=== PATIENT | male | born 1980 | race Caucasian/White ===

== ENCOUNTER → 2019-12-28 09:30 | Outpatient (CLI) | payer BC, SELFPAY ==
--- NOTE | ~2019-12-28 | US_ITS ---
EXAMINATION: US abdomen limited DATE: 12/28/2019 10:19 INDICATION: Unspecified abdominal pain. TECHNIQUE: Multiple grayscale and Doppler ultrasound images of the abdomen were obtained. COMPARISON: None FINDINGS: Abdominal aorta is normal in caliber. The visualized portion of the head of the pancreas is normal. There is diffuse hepatic steatosis. There is normal flow in main portal vein. The gallbladde r is normal in size. No gallstones or gallbladder wall thickening. There was no sonographic Evans si gn. The common duct is normal and measures 4 mm. Right kidney is normal in size. IMPRESSION: 1. Diffuse hepatic steatosis. Reviewed, dictated and finalized at location A.
== END ==
PROVIDERS: PCP Family Medicine; Referring Provider Physician Assistant; Visit Provider Family Medicine
DX: K76.0 Fatty (change of) liver, not elsewhere classified (principal)
CPT/HCPCS: 76705

== ENCOUNTER 2021-05-07 12:13 | Emergency (ER) | payer BC, SELFPAY ==
--- NOTE | 2021-05-07 12:14 | ECG_ITS ---
Measurements Intervals [place] Rate: 87 P: 39 SD: 151 QRS: 36 QRSD: 102 T: 75 QT: 356 QTc: 430 Interpretive Statements SINUS RHYTHM MINIMAL Q WAVES- HIGH LATERAL LEADS BORDERLINE ECG Electronically Signed On 05-07-2021 16:54:35 [employer] by Dion Pak D.O.
[2021-05-07 12:27] VITALS: BP 157/100; PULSE 89; RESP 16; TEMP 36.9; O2SAT 97
--- NOTE | 2021-05-07 14:28 | PC.NURSE ---
Pt presented to triage desk, stated that he is feeling better and will see his PCP. Pt encouraged to stay, as he was having possible cardiac symptoms. Pt verbalized understanding when RN explained risks of leaving. Pt still wanting to leave. Ambulatory and in no obvious distress when walking out.
== END 2021-05-08 03:04 | disposition left against medical advice (07) ==
LOC: ANHED 15:07
PROVIDERS: Emergency Provider Emergency Medicine; PCP Family Medicine
DX: Z53.21 Procedure and treatment not carried out due to patient leaving prior to being seen by health care provider (principal)
CPT/HCPCS: 93005; 99199

== ENCOUNTER 2021-05-11 08:11 | Outpatient (CLI) | payer BC, SELFPAY ==
[2021-05-11 08:41] LABS: Basophils Percent Auto 0.4 % (0.2-1.2); Eosinophils Absolute Auto 0.1 K/mm3 (0-0.3); Eosinophils Percent Auto 1.1 % (0-4.4); Immature Granulocyte Absolute 0.03 K/mm3 (0.00-0.031); Immature Granulocyte Percent A 0.4 % (0-0.5); Lymphocytes Absolute Auto 2.13 K/mm3 (0.9-3.2); Lymphocytes Percent Auto 26.7 % (18.3-44.2); Mean Corpuscular Hemoglobin 29.9 pg (26-34); Mean Corpuscular Volume 87.9 fl (80-100); Mean Platelet Volume 10.9 fl (7.4-10.4); Monocytes Absolute Auto 0.5 K/mm3 (0.1-0.6); Monocytes Percent Auto 6.4 % (2.6-8.5); Neutrophils Absolute Auto 5.2 K/mm3 (1.3-6.7); Platelet Count Result 207 k/mm3 (150-375); Red Blood Count 5.35 M/mm3 (4.6-6.20); Red Cell Distribution Width 12.6 % (11.5-14.5)
[2021-05-11 08:43] LABS: Add Urine Microscopic? YES; Appearance Urine Clear (Clear); Bilirubin Urine Negative (Negative); Blood Urine Negative (Negative); Color Urine Yellow (Yellow); Glucose Urine UA Negative (Negative); Ketones Urine Negative (Negative); Leukocyte Esterase Ur Negative LEU/UL (NEGATIVE); Mucus Urine Rare /lpf; Nitrate Urine Negative (Negative); Protein Urine Negative (Negative); RBC Urine 0-2 /hpf (0-2); Urobilinogen Urine Negative mg/dL (<2.0); WBC Urine 0-3 /hpf (0-3)
[2021-05-11 08:51] LABS: Alanine Aminotransferase 38 U/L (4-50); Albumin Level 4.5 g/dL (3.5-5.1); Alkaline Phosphatase 59 U/L (38-126); Amylase 60 U/L (30-110); Anion Gap 8 mmol/L (8-16); Aspartate Amino Transferase 29 U/L (17-59); Bilirubin,Total 0.8 mg/dL (0.2-1.3); Blood Urea Nitrogen 14 mg/dL (9-20); Calcium 8.8 mg/dL (8.4-10.2); Carbon Dioxide 27 mmol/L (22-30); Chloride 103 mmol/L (98-107); Cholesterol 194 mg/dL (0-200); Estimated Glomerular Filt Rate > 60; Glucose 97 mg/dL (65-110); HDL Direct 33 mg/dL; Lipase 52 U/L (23-300); Potassium 4.2 mmol/L (3.4-5.0); Sodium 138 mmol/L (137-145); Triglycerides 219 mg/dL (<150)
[2021-05-11 09:02] LABS: LDL Cholesterol Direct 123 mg/dL
== END 2021-05-11 08:12 | disposition home or self-care (01) ==
PROVIDERS: PCP Family Medicine; Visit Provider Physician Assistant
DX: Z00.00 Encounter for general adult medical examination without abnormal findings (principal); R10.9 Unspecified abdominal pain; E78.1 Pure hyperglyceridemia; K76.0 Fatty (change of) liver, not elsewhere classified; R10.13 Epigastric pain
CPT/HCPCS: 36415; 80053; 80061; 81001; 82150; 83690; 84443; 85025

== ENCOUNTER 2021-08-13 01:25 | Day surgery (SDC) | payer BC, SELFPAY ==
[2021-08-03 13:55] VITALS: BMI 40.2
--- NOTE | 2021-08-13 08:33 | P.PNAN_ITS ---
Anes - Initial Pre Proc Eval Procedure: Operation Date: 08/13/21 10:00 Proposed Procedures p Esophagogastroduodenoscopy - Mina Isidro MD Date/Time: 08/13/21 08:33 Surgeon: Mina Isidro MD Pre Op Diagnosis: GERD Patient Data Age: 41 Gender: M Height: 1.78 m Weight: 127.2 kg Allergies Allergy/AdvReac Type Severity Reaction Status Date / Time amoxicillin Allergy Unknown stomach Verified 08/13/21 08:48 upset Home Medications Medication Instructions Recorded Confirmed Type lansoprazole 15 mg capsule,delayed 15 mg PO BID cap 06/24/21 08/03/21 History release Patient hx anesthesia problems: none Family hx anesthesia problems: none Results Review: All pre-operative results and documents have been reviewed as part of the pre-operative evaluation. [facility] Past Medical History Medical History (Updated 08/13/21 @ 08:34 by Clay Lazcano MD) Chronic GERD Hepatic steatosis Morbid obesity with BMI of 40.0-44.9, adult Pure hyperglyceridemia Surgical History Surgical History History of fracture of wrist s/p ORIF R Family History Family History Mother Diabetes mellitus Father Hypertension Social History Social History (Updated 06/23/21 @ 16:11 by Nusrat Luo) Social History: Years smoked: 18 Smoking status: Former smoker Tobacco type: cigarettes Second hand tobacco smoke exposure: No Smoking end date: 05/07/21 Alcohol intake: current Alcohol use details: Occasionally Substance use: current Substance use type: marijuana Other substance usage details: occasionally takes an edible Last use: Pt uses edible gummies. Living arrangements: with family Gender identity (if verbalized by the patient): Male Sexual Orientation (if Verbalized by the Patient): Straight or Heterosexual Anes - Eval Final PreProcedure Day of Procedure 08/13/21 08:33 Patient weight: obese Heart: regular rate and rhythm Lungs: clear to auscultation and normal air movement Airway: Mallampati scale class II Neurological: alert and oriented Last oral intake: >/= 8 hours ASA classification: III Emergent: no Anesthetic plan: proceed Anesthesia type and monitoring: general GIVS Results Review: All pre-operative results and documents have been reviewed as part of the pre-operative evaluation. Informed Consent: The patient's anesthetic plan and its attendant risks and benefits were discussed with the patient/family/POA. Questions were solicited and answers provided to the satisfaction of the patient/family/POA.
[2021-08-13 08:49] VITALS: BP 145/88; PULSE 72; RESP 16; TEMP 36.3; O2SAT 99
[2021-08-13] MEDS: LACTATED RINGERS 1,000 ML 150 ML IV CONT (08:57)
--- NOTE | 2021-08-13 09:17 | PM.HPGS ---
History of Present Illness History of Present Illness Consent: Risks, benefits, and alternatives have been discussed and questions answered. Patient agrees to proceed with procedure. Chief complaint: GERD Narrative: Thiago William is a 41 year old male with gerd on lansoprazole bid for almost 2 years, recently had non-cardiac chest pain with normal stress test. Never had EGD. Review of Systems Constitutional: Constitutional: Denies headache(s) and Denies weakness Eyes: Eyes: Denies blurry vision ENT: Reports Normal hearing present, Denies headache(s) and Denies neck pain Cardiovascular: Cardiovascular: Denies chest pain and Denies dyspnea Respiratory: Respiratory: Denies dyspnea Gastrointestinal: Gastrointestinal: Reports no additional gastrointestinal complaints Genitourinary: Genitourinary: Denies dysuria Musculoskeletal: Musculoskeletal: Denies neck pain Integumentary/Breasts: Skin/Breast: Denies dry skin Neurologic: Reports Normal hearing present, Denies headache(s) and Denies weakness Psychiatric: Psychiatric: Denies anxiety Endocrine: Endocrine: Denies change in body appearance Hematologic/Lymphatic: Hematologic/Lymphatic: Denies easy bleeding Allergic/Immunologic: Allergic/Immunologic: Denies urticaria PMFSH Past Medical History Medical History (Updated 08/13/21 @ 09:18 by Mina Isidro MD) Chronic GERD Hepatic steatosis Morbid obesity with BMI of 40.0-44.9, adult Non-cardiac chest pain Pure hyperglyceridemia Surgical History Surgical History History of fracture of wrist s/p ORIF R Family History Family History Mother Diabetes mellitus Father Hypertension Social History Social History (Updated 06/23/21 @ 16:11 by Nusrat Luo) Social History: Years smoked: 18 Smoking status: Former smoker Tobacco type: cigarettes Second hand tobacco smoke exposure: No Smoking end date: 05/07/21 Alcohol intake: current Alcohol use details: Occasionally Substance use: current Substance use type: marijuana Other substance usage details: occasionally takes an edible Last use: Pt uses edible gummies. Living arrangements: with family Gender identity (if verbalized by the patient): Male Sexual Orientation (if Verbalized by the Patient): Straight or Heterosexual Meds Home Medications and Allergies Home Medications Medication Instructions Recorded Confirmed Type lansoprazole 15 mg capsule,delayed 15 mg PO BID cap 06/24/21 08/03/21 History release Allergies Allergy/AdvReac Type Severity Reaction Status Date / Time amoxicillin Allergy Unknown stomach Verified 08/13/21 08:48 upset Vital Signs Vital Signs - 24 hr 08/13/21 08:49 Temperature 97.4 F L Pulse Rate 72 Respiratory Rate 16 Blood Pressure 145/88 H Pulse Oximetry 99 Exam Const: General: comfortable and no acute distress HENMT: General nose exam: Normal nares present Eyes: General: appearance normal, both eyes and all related structures Neck: Neck: no JVD Resp: Auscultation: clear to auscultation bilaterally Cardio: Rate: regular rate Rhythm: regular rhythm GI: Inspection: non-distended GI Palp: Yes Soft to palpation Skin: General skin exam: normal color Neuro: General: gait normal Speech: normal speech Extrem: General: normal to inspection Psych: Mental Status: mental status grossly normal Assessment and Plan Assessment and plan (1) Chronic GERD: Code(s): K21.9 - Gastro-esophageal reflux disease without esophagitis Status: Acute Assessment and Plan: egd with bx, already on ppi bid (2) Non-cardiac chest pain: Code(s): R07.89 - Other chest pain Status: Acute
[2021-08-13 09:41] VITALS: BP 128/87; PULSE 72; RESP 18; O2SAT 96
[2021-08-13 09:51] VITALS: BP 122/80; PULSE 64; RESP 14; O2SAT 97
[2021-08-13 10:01] VITALS: BP 135/92; PULSE 72; RESP 15; O2SAT 97
== END 2021-08-13 10:12 | disposition home or self-care (01) ==
PROVIDERS: PCP Family Medicine; Visit Provider Internal Medicine Gastroenterology
PROC: 0DJ08ZZ Inspection of Upper Intestinal Tract, Via Natural or Artificial Opening Endoscopic (ICD-10-PCS; CPT 43235; principal; 2021-08-13 10:00)
DX: K21.9 Gastro-esophageal reflux disease without esophagitis (principal); R07.89 Other chest pain; K76.0 Fatty (change of) liver, not elsewhere classified; E78.1 Pure hyperglyceridemia; E66.01 Morbid (severe) obesity due to excess calories; Z68.41 Body mass index [BMI] 40.0-44.9, adult; Z87.891 Personal history of nicotine dependence; F12.90 Cannabis use, unspecified, uncomplicated
CPT/HCPCS: 43239; 88305; J2001; J2704; J7120

== ENCOUNTER → 2022-01-28 08:02 | Outpatient (CLI) | payer BC, SELFPAY ==
--- NOTE | ~2022-01-28 | US_ITS ---
EXAMINATION: US abdomen complete DATE: 01/28/2022 08:32 INDICATION: Gastroesophageal reflux disease TECHNIQUE: Multiple grayscale and Doppler ultrasound images of the abdomen were obtained. COMPARISON: 12/28/2019 FINDINGS: Bowel gas obscures visualization of the pancreas. The visualized portions of the pancreas a re unremarkable. The liver is normal with normal echogenicity and echotexture. No surface nodularity. Normal hepatopetal flow in the main portal vein. The gallbladder is normal with no abnormal wall thi ckening, pericholecystic fluid or stones. The normal common bile duct measures 4 mm. There was no son ographic Evans sign. The visualized portions of the aorta and inferior vena cava are normal. The right kidney measures 11.1 x 5.9 x 5.5 cm. The left kidney measures 12.1 x 5.7 x 5.5 cm. The kidn eys demonstrate normal parenchymal echogenicity. There is no hydronephrosis. The spleen is normal in appearance and measures 11.5 cm. IMPRESSION: 1. No sonographic correlate for the patient's symptoms. Reviewed, dictated and finalized at location B.
== END ==
PROVIDERS: PCP Family Medicine; Visit Provider Physician Assistant
DX: R10.13 Epigastric pain (principal); K21.9 Gastro-esophageal reflux disease without esophagitis
CPT/HCPCS: 76700

== ENCOUNTER 2022-03-09 08:35 | Outpatient (CLI) | payer BC, SELFPAY ==
--- NOTE | ~2022-03-09 | NM_ITS ---
EXAM: NM gastric emptying study DATE: 03/09/2022 11:14 INDICATION: Bloating TECHNIQUE: A gastric emptying study was performed using the methodology of Renato IRAHETA, et al. J Nucl Med 2007; 48:568-572. The patient was given a meal consisting of 2 scrambled eggs labeled with 1.1 m Ci Tc-99m sulfur colloid, 2 slices of toast, two packages of jam, and approximately 120 mL of water. Simultaneous anterior and posterior 1-min images of the abdomen were obtained with the patient supine at multiple time points over a total period of 4 hours. The geometric mean of anterior and posterior views was determined, and the percentage retention was calculated for each time point. COMPARISON: None. FINDINGS: Gastric retention of the radiotracer-labeled meal was 33% and 8% at the 55 minute and 1 hour and 47 m inutes time points, respectively. With this technique, apparent rapid gastric emptying is suggested b y <30% gastric retention at 1 hour. Delayed gastric emptying is defined by gastric retention of >90% at 1 hour, >60% retention at 2 hours, or >10% retention at 4 hours. IMPRESSION: 1. Borderline rapid gastric emptying. Reviewed, dictated and finalized at location A.
== END 2022-03-09 08:36 | disposition home or self-care (01) ==
PROVIDERS: PCP Family Medicine; Visit Provider Internal Medicine Gastroenterology
DX: R14.0 Abdominal distension (gaseous) (principal); R10.13 Epigastric pain; R07.89 Other chest pain
CPT/HCPCS: 78264; A9541

== ENCOUNTER 2022-03-11 06:56 | Outpatient (CLI) | payer BC, SELFPAY ==
--- NOTE | ~2022-03-11 | NM_ITS ---
EXAMINATION: NM hepatobiliary wo pharm DATE: 03/11/2022 10:11 CDT INDICATION: Bloating and abdominal pain COMPARISON: Gastric emptying study dated 03/09/2022 and ultrasound dated 01/28/2022. TECHNIQUE: mCi Tc-99m mebrofenin (Choletec) was administered intravenously. Scintigraphic images of the abdomen were obtained for one hour. At the 1 hour time point, the patient drank 8 oz Ensure, and imaging was continued for 60 minutes. Gallbladder ejection fraction was calculated by the technologis t. FINDINGS: There is normal clearance of radiotracer from the blood pool. There is homogeneous tracer u ptake by the liver. Activity progresses to the bowel and gallbladder. The gallbladder ejection fract ion is 23%. Note that with this technique, normal GBEF >= 33%. IMPRESSION: 1. Low gallbladder ejection fraction measuring 23%. Low GBEF is associated with gallbladder dysfunc tion, although not specific for acute or chronic cholecystitis. Reviewed, dictated and finalized at location B. IMPRESSION: 1. Low gallbladder ejection fraction measuring 23%. Low GBEF is associated wi th gallbladder dysfunction, although not specific for acute or chronic cholecys titis.
== END 2022-03-11 06:57 | disposition home or self-care (01) ==
PROVIDERS: PCP Family Medicine; Visit Provider Nurse Practitioner
DX: R14.0 Abdominal distension (gaseous) (principal); R10.13 Epigastric pain; R07.89 Other chest pain
CPT/HCPCS: 78226; A9537

== ENCOUNTER 2022-04-21 08:06 | Outpatient (CLI) | payer BC, SELFPAY ==
[2022-04-21 09:05] LABS: Alanine Aminotransferase 32 U/L (6-50); Albumin Level 4.5 g/dL (3.5-5.1); Alkaline Phosphatase 61 U/L (38-126); Amylase 73 U/L (30-110); Aspartate Amino Transferase 30 U/L (17-59); Bilirubin,Total 0.7 mg/dL (0.2-1.3); Lipase 63 U/L (23-300)
== END 2022-04-21 08:07 | disposition home or self-care (01) ==
PROVIDERS: PCP Family Medicine; Visit Provider Surgery
DX: Z01.818 Encounter for other preprocedural examination (principal); K82.8 Other specified diseases of gallbladder
CPT/HCPCS: 36415; 80076; 82150; 83690; 86850; 86900; 86901

== ENCOUNTER 2022-04-27 01:47 | Day surgery (SDC) | payer BC, SELFPAY ==
[2022-04-14 10:31] VITALS: BMI 38.9
--- NOTE | 2022-04-14 10:43 | PC.NURSE ---
Addendum entered by Julienne Love RN 04/14/22 10:47: KUMAR SHOWER MORNING OF SURGERY. PT RELAYS UNDERSTANDING. Original Note: Report to the Outpatient Waiting Room, entrance under the green pavilion located off [facility], at time __10:00AM on date __04/27/22 . Planned Procedure Time: ___12:00PM . Time changes happen often and if your time is changed the preop area will call you the afternoon before. - You and your visitor will be asked to self-screen and do not enter if you have any COVID symptoms. - Only one visitor is requested with a max of two and NO children visitors are allowed at this time. - The patient visitor may be requested to leave or wait in car when not with patient due to distancing restrictions. - A mask is optional within the hospital. Patients may have clear liquids (water, carbonated beverages, clear teas, apple juice) until 3 hours prior to surgery with a maximum of 20 ounces. - No food from midnight until time of surgery Take the following medications with a SIP of water the morning of surgery: __NONE Medications to discontinue per physician NONE Date to take last dose Please no make-up, nail sami, hairspray, perfume, deodorant, or body powder the day of surgery. No jewelry (including any body piercings) or valuables the day of surgery, leave them at home. Please take a shower or bath the night before, or the morning of, surgery with an antibacterial soap. Wear comfortable, loose fitting clothing. Children are encouraged to wear pajamas. - Jewelry must be removed prior to entering the operating room. Rings and piercings that are not removed may be cut off. - The hospital will not accept responsibility for valuables. - Please leave all valuables, including medications, at home the day of surgery. If you are going home after surgery, a licensed over the road driver must drive you home. - NO public transportation without another adult if you receive anesthesia. - We recommend that an adult stay with you for 24 hours following discharge. - We also recommend that you do not drive, make important decision, drink alcoholic beverages, or take any drugs that were not prescribed by your health care provider for at least 24 hours after your discharge time. Follow any additional instructions given to you from your surgeon. If you or anyone in your household have experienced Covid symptoms in the past week, please notify your surgeon or the nurse liaison at the phone number below for possible testing. Telephone instructions given to ___PATIENT and asked if any additional questions and then verbalized understanding. Patient advised to call surgeon office or pre surgery nurse liaison [phone] if any additional questions.
[2022-04-27] VITALS (8 sets, daily range): BP systolic 139–160; BP diastolic 83–98; PULSE 74–99; RESP 12–19; TEMP 36.5–36.7; O2SAT 98–100
--- NOTE | 2022-04-27 10:18 | P.PNAN_ITS ---
Anes - Initial Pre Proc Eval Procedure: Operation Date: 04/27/22 12:00 Proposed Procedures p Laparoscopic Cholecystectomy, Possible Open - Masoud Johnson DO Date/Time: 04/27/22 10:18 Surgeon: Masoud Johnson DO Pre Op Diagnosis: biliary dyskenisia Patient Data Age: 41 Gender: M Height: 1.78 m Weight: 123 kg Allergies Allergy/AdvReac Type Severity Reaction Status Date / Time amoxicillin AdvReac Unknown stomach Verified 04/14/22 10:29 upset Home Medications Medication Instructions Recorded Confirmed Type lansoprazole 15 mg capsule,delayed 15 mg PO BID 06/24/21 04/14/22 History release loratadine 10 mg tablet (Claritin) 10 mg PO DAILY 03/14/22 04/14/22 History Patient hx anesthesia problems: none Family hx anesthesia problems: none Results Review: All pre-operative results and documents have been reviewed as part of the pre- operative evaluation. [facility] Past Medical History Medical History Bloating Chronic GERD Hepatic steatosis Morbid obesity with BMI of 40.0-44.9, adult Non-cardiac chest pain Pure hyperglyceridemia Surgical History Surgical History History of fracture of wrist s/p ORIF R Family History Family History Mother Diabetes mellitus Father Hypertension Social History Social History Social History: Smoking packs per day: 0.5 Smoking cigarettes per day: 10.0 Years smoked: 15 Smoking pack-years: 7.50 Smoking status: Former smoker Tobacco type: cigarettes Second hand tobacco smoke exposure: No Smoking end date: 11/12/20 Alcohol intake: current Drinks per week: 3 Alcohol use details: Occasionally Substance use: never Substance use type: marijuana Other substance usage details: occasionally takes an edible Last use: Pt uses edible gummies. Living arrangements: with family Additional living arrangements comments: & CHILDREN Additional occupation/education comments: [employer] Gender identity (if verbalized by the patient): Male Sexual Orientation (if Verbalized by the Patient): Straight or Heterosexual Spiritual care concerns: No Anes - Eval Final PreProcedure Day of Procedure 04/27/22 10:18 Patient weight: obese Heart: regular rate and rhythm Lungs: clear to auscultation Airway: Mallampati scale class II Neurological: alert and oriented Last oral intake: >/= 8 hours ASA classification: II Emergent: no Anesthetic plan: proceed Anesthesia type and monitoring: general ETT and standard monitoring Results Review: All pre-operative results and documents have been reviewed as part of the pre- operative evaluation. Informed Consent: The patient's anesthetic plan and its attendant risks and benefits were discussed with the patient/family/POA. Questions were solicited and answers provided to the satisfaction of the patient/family/POA.
[2022-04-27] MEDS: LACTATED RINGERS 1,000 ML 30 ML IV CONT ×2 (10:30→12:28)
[2022-04-27] MEDS: KETOROLAC 15 MG/ML VIAL (*BKC) IV PUSH (10:30)
[2022-04-27] MEDS: ACETAMINOPHEN 500 MG TABLET 1000 MG PO (10:30)
--- NOTE | 2022-04-27 10:35 | PM.IMHP ---
H&P: HPI History of Present Illness Date/Time: 04/27/22 10:35 Chief Complaint: biliary dyskinesia Narrative: 41 yo man presents for laparoscopic cholecystectomy. He denies any changes since last seen in office. Review of Systems Review of Systems: All systems reviewed & are unremarkable except as noted in HPI and below Constitutional: Constitutional: Denies chills, Denies fever(s), Denies headache(s) and Denies weight loss Eyes: Eyes: Denies change in vision ENT: Denies dizziness, Denies headache(s), Denies neck mass and Denies throat swelling Cardiovascular: Cardiovascular: Denies chest pain, Denies lightheadedness and Denies dyspnea Respiratory: Respiratory: Denies cough, Denies dyspnea and Denies wheezing Gastrointestinal: Gastrointestinal: Denies abdominal pain, Denies change in bowel habits, Denies nausea and Denies vomiting Genitourinary: Genitourinary: Denies hematuria and Denies dysuria Musculoskeletal: Musculoskeletal: Reports as per HPI Integumentary/Breasts: Skin/Breast: Reports as per HPI Neurologic: Denies dizziness and Denies headache(s) Allergic/Immunologic: Allergic/Immunologic: Denies throat swelling and Denies wheezing PMFSH Past Medical History Medical History Bloating Chronic GERD Hepatic steatosis Morbid obesity with BMI of 40.0-44.9, adult Non-cardiac chest pain Pure hyperglyceridemia Surgical History Surgical History History of fracture of wrist s/p ORIF R Family History Family History Mother Diabetes mellitus Father Hypertension Social History Social History Social History: Smoking packs per day: 0.5 Smoking cigarettes per day: 10.0 Years smoked: 15 Smoking pack-years: 7.50 Smoking status: Former smoker Tobacco type: cigarettes Second hand tobacco smoke exposure: No Smoking end date: 11/12/20 Alcohol intake: current Drinks per week: 3 Alcohol use details: Occasionally Substance use: never Substance use type: marijuana Other substance usage details: occasionally takes an edible Last use: Pt uses edible gummies. Living arrangements: with family Additional living arrangements comments: & CHILDREN Additional occupation/education comments: [employer] Gender identity (if verbalized by the patient): Male Sexual Orientation (if Verbalized by the Patient): Straight or Heterosexual Spiritual care concerns: No Meds Home Medications and Allergies Home Medications Medication Instructions Recorded Confirmed Type lansoprazole 15 mg capsule,delayed 15 mg PO BID 06/24/21 04/14/22 History release loratadine 10 mg tablet (Claritin) 10 mg PO DAILY 03/14/22 04/14/22 History Allergies Allergy/AdvReac Type Severity Reaction Status Date / Time amoxicillin AdvReac Unknown stomach Verified 04/14/22 10:29 upset Exam Const: General: no acute distress and alert Orientation/consciousness: patient oriented x3 HENMT: Head: normocephalic and atraumatic Ears: hearing grossly normal bilaterally Face/Nose/Sinus: Normal nares present Mouth: Yes Normal oral and palatal mucosa present Eyes: Periorbital: periorbital findings normal Sclera: sclerae normal EOM: EOMs intact bilaterally Neck: Neck: normal visual inspection, no lymphadenopathy and trachea midline Chest: Chest palpation & inspection: normal inspection of the chest Resp: Effort & Inspection: normal respiratory effort Auscultation: clear to auscultation bilaterally Cardio: Jugular venous distension: no JVD Rate: regular rate Rhythm: regular rhythm Heart sounds: S1 normal heart sound present and S2 normal heart sound present Peripheral pulses: Peripheral pulses 2+ throughout GI: Inspection: normal to inspection
--- NOTE | 2022-04-27 10:36 | WPDHPUPDATE1 ---
History and Physical Update Update Date/Time: 04/27/22 10:36 History and Physical has been reviewed, including an updated exam of the patient. There are NO changes in the patient's condition. Risks, benefits, and alternatives have been discussed and questions answered. Patient agrees to proceed with procedure.
[2022-04-27] MEDS: ceFAZolin 3 GM/D5W 100 ML 100 ML IVPB (11:20)
[2022-04-27] MEDS: BUPIVACAINE/EPINEPHRINE 0.5% 10 ML VIAL 30 ML INFILTRATE (11:46)
--- NOTE | 2022-04-27 12:25 | W.PM.PROC2 ---
Procedure Note - Detailed Date of Procedure 04/27/22 Pre-op Diagnosis biliary dyskenisia Post-op Diagnosis Same Procedure Performed Laparoscopic Cholecystectomy Surgeon Masoud Johnson, DO Anesthesia General and Local (0.5% bupivacaine) Indications This is a 41-year-old man who presented with epigastric abdominal pain and bloating for the past couple years. He had seen GI and had extensive workup including ultrasound, gastric emptying scan, EGD, and HIDA scan. His HIDA scan showed decreased gallbladder ejection fraction at 23%, but the remainder of the workup was essentially negative. Discussions were made with the patient about treatment options and decision was made to proceed with laparoscopic cholecystectomy, possible open. Findings Laparoscopic cholecystectomy was performed. The patient did have many pericholecystic adhesions. His gallbladder was slightly dilated. The cystic duct appeared normal in size. The gallbladder was removed and sent to the lab for pathology. Description of Procedure Procedure as well as risks, benefits, and alternatives were discussed with patient. Written consent was obtained and placed in chart prior to procedure. The patient was brought back to surgical suite. Patient was placed in supine position on operating table. Time-out was done to confirm patient and procedure. Patient was then intubated by the anesthesia department. Abdomen was prepped and draped in sterile fashion using chlorhexidine prep. 0.5% bupivacaine with epinephrine was infiltrated at each site of incision. A 5 millimeter incision was made near the umbilicus, and a 5 millimeter Optiview trocar was advanced through the abdominal layers under direct visualization. Once inside the abdominal cavity, carbon dioxide was insufflated to create a pneumoperitoneum. The camera was inserted and the abdomen was inspected. No immediate abnormalities were identified. The patient was placed in reverse Trendelenburg position and rotated slightly to the left. An 11 millimeter incision was made in the subxiphoid region, and an 11 millimeter trocar was inserted under direct visualization. Two 5 millimeter incisions were made in the right upper quadrant, and two 5 millimeter trocars were inserted under direct visualization. The gallbladder was identified and grasped at the fundus and retracted superiorly. It was then grasped at the infundibulum retracted laterally. Careful dissection around the neck of the gallbladder was performed using blunt dissection with a [place] grasper and hook electrocautery. The cystic duct was identified, and a window was created behind it. The cystic artery was also identified and a window was created behind it. The critical view of safety was identified, visualizing the cystic duct running directly into the neck of the gallbladder, and the cystic artery running directly into the wall of the gallbladder. A 5 millimeter clip open hearth laborer was then used to place 2 clips proximally and 1 clip distally on both the cystic duct and cystic artery. They were then both transected using endoscopic scissors. Once safely away from the franklin hepatitis, the gallbladder was dissected free from the liver bed using hook electrocautery. Hemostasis was achieved along the way. The gallbladder was removed completely and then removed through the subxiphoid port. The liver bed was then inspected. Hemostasis appeared adequate, and our clips appeared secure. The area was gently irrigated with sterile saline. No other abnormalities were seen. The patient was flattened out in bed, and 1 final inspection was made around the abdominal cavity. The subxiphoid port was removed, and a Sloan Ian cone was used to approximate the fascia with an 0-Vicryl simple interrupted suture. The remaining ports were then removed under direct visualization, the camera was removed, and the pneumoperitoneum was released. The skin of the incisions was approximated using 4-0 Monocryl
[2022-04-27] MEDS: oxyCODONE HCL (*CRX) 5 MG TAB IR PO (13:36)
== END 2022-04-27 14:30 | disposition home or self-care (01) ==
PROVIDERS: PCP Family Medicine; Visit Provider Surgery
PROC: 0FT44ZZ Resection of Gallbladder, Percutaneous Endoscopic Approach (ICD-10-PCS; CPT 47562; principal; 2022-04-27 12:00)
DX: K82.4 Cholesterolosis of gallbladder (principal); K21.9 Gastro-esophageal reflux disease without esophagitis; Z87.891 Personal history of nicotine dependence; F12.90 Cannabis use, unspecified, uncomplicated; E66.9 Obesity, unspecified; Z68.39 Body mass index [BMI] 39.0-39.9, adult
CPT/HCPCS: 47562; 88304; A9270; J0330; J0690; J1100; J1170; J1885; J2250; J2405; J2704; J2710; J3010; J7030; J7120

== ENCOUNTER 2024-06-06 08:24 | Outpatient (CLI) | payer BC, SELFPAY ==
[2024-06-06 08:56] LABS: Hematocrit 47.2 % (42.0-52.0); Mean Corpuscular HGB Conc 33.9 g/dl (32-36); Mean Corpuscular Hemoglobin 29.7 pg (26-34); Mean Corpuscular Volume 87.6 fl (80-100); Mean Platelet Volume 10.8 fl (7.4-10.4); Platelet Count Result 210 k/mm3 (150-375); Red Blood Count 5.39 M/mm3 (4.6-6.20); Red Cell Distribution Width 12.9 % (11.5-14.5); White Blood Count 6.9 K/mm3 (4.5-10.0)
[2024-06-06 08:59] LABS: Add Urine Microscopic? YES; Appearance Urine Clear (Clear); Bacteria Urine None Seen /hpf; Bilirubin Urine Negative (Negative); Blood Urine Negative (Negative); Color Urine Yellow (Yellow); Glucose Urine UA Negative (Negative); Ketones Urine Negative (Negative); Leukocyte Esterase Ur Trace LEU/UL (Negative); Nitrate Urine Negative (Negative); Non Pathogenic Casts 0-2; Protein Urine Negative (Negative); RBC Urine 0-2 /hpf (0-2); Specific Grav Ur 1.023 (1.001-1.035); Squamous Epithelial Cell Urine None Seen /hpf (Few); Urobilinogen Urine 0.2 mg/dL (<2.0); WBC Urine 0-5 /hpf (0-3); pH Urine 6.5 (5.0-9.0)
[2024-06-06 09:01] LABS: Alanine Aminotransferase 46 U/L (6-50); Albumin Level 4.5 g/dL (3.5-5.1); Alkaline Phosphatase 70 U/L (38-126); Anion Gap 6 mmol/L (4-12); Aspartate Amino Transferase 29 U/L (17-59); Bilirubin,Total 0.8 mg/dL (0.2-1.3); Blood Urea Nitrogen 15 mg/dL (9-20); Calcium 8.7 mg/dL (8.4-10.2); Carbon Dioxide 28 mmol/L (22-30); Chloride 105 mmol/L (98-107); Cholesterol 196 mg/dL (0-200); Estimated Glomerular Filt Rate > 60; Glucose 97 mg/dL (65-110); HDL Direct 41 mg/dL; Potassium 4.3 mmol/L (3.4-5.0); Sodium 139 mmol/L (137-145); Triglycerides 120 mg/dL (<150)
[2024-06-06 09:12] LABS: LDL Cholesterol Direct 126 mg/dL
== END 2024-06-06 08:25 | disposition home or self-care (01) ==
LOC: ANHLAB 08:25
PROVIDERS: PCP Family Medicine; Visit Provider Physician Assistant
DX: Z00.00 Encounter for general adult medical examination without abnormal findings (principal); K76.0 Fatty (change of) liver, not elsewhere classified; E78.5 Hyperlipidemia, unspecified; K21.9 Gastro-esophageal reflux disease without esophagitis
CPT/HCPCS: 36415; 80053; 80061; 81001; 84443; 85027